=== PATIENT | female | born 1970 | race Two or more races ===

== ENCOUNTER 2020-07-09 20:28 | Emergency (ER) | payer OTHER ==
[~2020-07-09] VITALS: Ht 167.6 cm; Wt 75.7 kg
[2020-07-09] MEDS ORDERED: INDUR (20:42)
[2020-07-09] MEDS ORDERED: NEURONTIN600 M1 (20:42)
[2020-07-09] MEDS ORDERED: PLAVIX75 MG (20:42)
[2020-07-09] MEDS ORDERED: VASOTEC20 M1 (20:42)
[2020-07-09] MEDS ORDERED: BUSPAR (20:43)
[2020-07-09] MEDS ORDERED: HUMALOG100 UNIT/2 (20:44)
[2020-07-09] MEDS ORDERED: TRESIBA FL200 UNIT/1 (20:44)
[2020-07-10] MEDS ORDERED: PEPCID AC20 MG PO (01:01)
[2020-07-10] MEDS ORDERED: PERCOCET 5-3251 EACH PO (01:01)
[2020-07-10] MEDS ORDERED: CIPRO500 MG PO (01:01)
[2020-07-10] MEDS ORDERED: TAMS0.4C PO (01:01)
== END 2020-07-10 02:44 | disposition home or self-care (01) ==
LOC: ER 20:28
DX: N39.0 Urinary tract infection, site not specified (principal); B96.29 Other Escherichia coli [E. coli] as the cause of diseases classified elsewhere; R31.0 Gross hematuria; R10.11 Right upper quadrant pain; N20.1 Calculus of ureter; K59.09 Other constipation; Z20.828 Contact with and (suspected) exposure to other viral communicable diseases

== ENCOUNTER 2021-01-04 20:02 | Emergency (ER) | payer OTHER ==
[~2021-01-04] VITALS: Ht 167.6 cm; Wt 71.7 kg
[~2021-01-04 20:02] MED LIST: BUSPAR; CIPRO500 MG PO; HUMALOG100 UNIT/2; INDUR; NEURONTIN600 M1; PEPCID AC20 MG PO; PERCOCET 5-3251 EACH PO; PLAVIX75 MG; TAMS0.4C PO; TRESIBA FL200 UNIT/1; VASOTEC20 M1
[2021-01-04] MEDS ORDERED: PHENERGAN25 MG (20:19)
[2021-01-04] MEDS ORDERED: MACRODANTIN100 M1 PO (22:04)
[2021-01-04] MEDS ORDERED: PEPCID AC20 MG PO (22:04)
== END 2021-01-04 22:06 | disposition home or self-care (01) ==
LOC: ER 20:02
DX: N39.0 Urinary tract infection, site not specified (principal)

== ENCOUNTER 2022-03-13 11:37 | Outpatient (CLI) | payer OTHER ==
[~2022-03-13 11:37] MED LIST changes: +MACRODANTIN100 M1 PO; +PHENERGAN25 MG
== END 2022-03-13 11:39 | disposition home or self-care (01) ==
LOC: LAB 11:37
PROVIDERS: ATTEND Internal Medicine Hematology & Oncology
DX: D68.8 Other specified coagulation defects (principal)